=== PATIENT | male | born 1985 | race African-American/Black ===

== ENCOUNTER 2016-05-19 02:42 | Emergency (ER) | payer SELFPAY ==
[~2016-05-19] VITALS: Ht 152.4 cm; Wt 58.0 kg
[~2016-05-19 02:42] MED LIST: ALBU1AER INH; BECL0.07 INH; PRED20 PO; VENTAER INH
[2016-05-19 02:45] VITALS: BP 130/78; PULSE 86; RESP 14; TEMP 97; O2SAT 99
[2016-05-19] MEDS ORDERED: LIDOCAINE 1%/EPINEPHrine 1:100,000 SOLN 20 ML VIAL INFIL ONE (03:30)
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
[2016-05-19] MEDS ORDERED: IBUPROFEN 600 MG TAB PO ONE (03:45)
== END 2016-05-19 04:29 | disposition home or self-care (01) ==
LOC: NEPB 02:42
DX: S01.311A Laceration without foreign body of right ear, initial encounter (principal); W22.8XXA Striking against or struck by other objects, initial encounter; J45.909 Unspecified asthma, uncomplicated
CPT/HCPCS: 12011

== ENCOUNTER 2016-06-02 15:34 | Emergency (ER) | payer SELFPAY ==
[~2016-06-02] VITALS: Ht 152.4 cm; Wt 60.0 kg
[2016-06-02 15:36] VITALS: BP 121/77; PULSE 82; RESP 16; TEMP 98; O2SAT 98
[2016-06-02] MEDS ORDERED: ALBU.5I NEB (15:49)
[2016-06-02] MEDS ORDERED: ADVA250A INH (15:49)
--- NOTE | 2016-06-02 15:51 | PD ---
HPI Chief Complaint: Wound/Suture/Staple Re-Check Time Seen by Provider: 15:50 Travel History International Travel<30 days: No Contact w/Intl Traveler<30days: No Traveled to known affect area: No History of Present Illness HPI 31-year-old male reports to emergency department requesting suture removal to his right ear. They have been in place since May 19. He denies erythema, edema, drainage from the laceration site. Denies fever, chills, nausea, vomiting. History of asthma. No known allergies. No other modifying factors or associated signs and symptoms. PFSH Past Medical History Asthma: Yes Diminished Hearing: No Respiratory: Yes (ASTHMA) Immunizations Current: Yes Past Surgical History Oral Surgery: Yes (GUMS AND TEETH) Social History Alcohol Use: Yes (OCC) Tobacco Use: Yes (QUIT 2 MONTHS AGO ) Substance Use: Yes (DENIES ) Allergies-Medications (Allergen,Severity, Reaction): Coded Allergies: No Known Allergies (Unverified , 06/02/16) Reported Meds & Prescriptions Reported Meds & Active Scripts Active Reported Advair Diskus Inh (Fluticasone-Salmeterol Inh) 250-50 Mcg/Blist Aer 1 Puff INH BID Rinse mouth after use. Albuterol Neb (Albuterol Sulfate) 2.5 Mg/0.5 Ml Neb 2.5 Mg NEB Q4HR NEB PRN Note: The Albuterol Sulfate Inhalation Solution is concentrated and must be diluted. Read complete instructions carefully before using. Review of Systems Except as stated in HPI: all other systems reviewed are Neg Physical Exam Narrative GENERAL: Well-nourished, well-developed male patient, in no acute distress SKIN: Warm and dry. Right ear laceration is well approximated and with sutures intact; without erythema, edema, drainage; no signs of infection. HEAD: Atraumatic. Normocephalic. EYES: Pupils equal and round. No scleral icterus. No injection or drainage. ENT: Mucosa pink and moist. Airway patent. NECK: Trachea midline. CARDIOVASCULAR: Regular rate. RESPIRATORY: No accessory muscle use. GASTROINTESTINAL: Flat. MUSCULOSKELETAL: No obvious deformities. No clubbing. No cyanosis. No edema. NEUROLOGICAL: Awake and alert. Oriented 3. No obvious cranial nerve deficits. Motor grossly within normal limits. Normal speech. PSYCHIATRIC: Appropriate mood and affect; insight and judgment normal. Data Data Last Documented VS Vital Signs Date Time Temp Pulse Resp B/P Pulse Ox O2 Delivery O2 Flow Rate FiO2 06/02/16 15:36 98.0 82 16 121/77 98 Room Air MDM Medical Decision Making Medical Screen Exam Complete: Yes Emergency Medical Condition: Yes Medical Record Reviewed: Yes Differential Diagnosis Suture removal, wound recheck, medical clearance Narrative Course 31-year-old male presents for suture removal to his right ear. They replaced on May 19. The laceration is well approximated and without signs of infection. Sutures removed. Patient tolerated well. Patient is medically cleared and stable for discharge. Discussed reasons to return to the emergency department. Instructed patient to follow up with primary care provider. Patient agrees with treatment plan. The patients vital signs are stable and the patient is stable for outpatient follow-up and treatment. Patient discharged home, stable and in no acute distress. Diagnosis Primary Impression: Encounter for removal of sutures Referrals: Primary Care Physician Patient Instructions: General Instructions, Stitches Removal (ED) Departure Forms: Tests/Procedures, Work Release Enter return to work date: Jun 03, 2016 Additional Instructions: Ibuprofen or Tylenol as directed and as needed for pain Follow up with primary care provider Return to the emergency department immediately with worsening of symptoms Med/Other Pt SpecificInfo: No Meds Exist/No RX given Disposition: 01 DISCHARGE HOME Condition: Stable Estephania Truong Jun 02, 2016 15:51
== END 2016-06-02 16:09 | disposition home or self-care (01) ==
LOC: NEPB 15:34
DX: S01.311D Laceration without foreign body of right ear, subsequent encounter (principal); X58.XXXD Exposure to other specified factors, subsequent encounter; Z48.02 Encounter for removal of sutures
CPT/HCPCS: 99281

== ENCOUNTER 2016-07-23 12:09 | Emergency (ER) | payer OTHER ==
[~2016-07-23] VITALS: Ht 152.4 cm; Wt 57.0 kg
[~2016-07-23 12:09] MED LIST changes: +ADVA250A INH; +ALBU.5I NEB; -ALBU1AER INH; -BECL0.07 INH; -PRED20 PO; -VENTAER INH
[2016-07-23 12:10] VITALS: BP 135/70; PULSE 78; RESP 20; TEMP 98.8; O2SAT 99
[2016-07-23 13:10] VITALS: RESP 40; O2SAT 95
[2016-07-23] MEDS ORDERED: methylPREDNISolone SOD SUCC 125 MG/2 ML VIAL IVP ONE (13:15)
[2016-07-23] MEDS ORDERED: SODIUM CHLORIDE 0.9% FLUSH 5 ML FLUSH IVF PRN (13:15)
[2016-07-23] MEDS: RESP: ALBUTEROL 2.5 MG/3 ML NEB (SCH) INH ×3 (13:32→14:05)
[2016-07-23 13:33] VITALS: O2SAT 98
--- NOTE | 2016-07-23 13:56 | PD ---
HPI Chief Complaint: Respiratory Distress Time Seen by Provider: 13:52 Travel History International Travel<30 days: No Contact w/Intl Traveler<30days: No Traveled to known affect area: No History of Present Illness HPI 4-year-old male that presents to the ED for evaluation of asthma exacerbation. Per patient his been out of his inhaler for a couple of months. Per patient for the past 3 days his been having worsening shortness of breath and today got worse. Per patient today is been so severe that he cannot even catch his breath. He is barely able to speak secondary to shortness of breath. Per patient he is never had to be admitted to the hospital but he has been here before for shortness of breath episode secondary to him not having his albuterol inhaler. He denies any fevers chills or sweats. He states having some cough and runny nose recently but nothing too severe. Per patient essentially comes with his asthma exacerbation. He has no allergies to medication. Denies any abdominal pain. No nausea or vomiting. States that his triggers are usually changes in the climate as well as environmental. He is not specifically sure of which environmental causes other than the change in temperature. He has no allergies to medication. Denies any recent travel. PFSH Past Medical History Asthma: Yes Diminished Hearing: No Neurologic: Yes (TBI) Respiratory: Yes Immunizations Current: Yes Influenza Vaccination: Yes Past Surgical History Oral Surgery: Yes (GUMS AND TEETH) Social History Alcohol Use: Yes (OCC) Tobacco Use: Yes Substance Use: No Allergies-Medications (Allergen,Severity, Reaction): Coded Allergies: No Known Allergies (Unverified , 07/23/16) Reported Meds & Prescriptions Reported Meds & Active Scripts Active Prednisone 20 Mg Tab 20 Mg PO BID Proair Hfa 8.5 GM Inh (Albuterol Sulfate) 90 Mcg/Act Aer 2 Puff INH Q4-6H PRN 108 mcg/actuation Azithromycin 250 Mg Tab 250 Mg PO DIRECTED Take 2 tabs (500 mg) on day 1 then 1 tab daily x 4 days. Review of Systems General / Constitutional: No: Fever, Chills, Weight Gain, Weight Loss, Other Eyes: No: Diploplia, Blurred Vision, Photophobia, Drainage, Redness, Foreign Body Sensation, Pain, Tearing, Blind Spots, Visual changes, Blindness, Other HENT: No: Headaches, Vertigo, Lightheadedness, Sore Throat, Rhinitis, Rhinorrhea, Congestion, Nosebleed, Neck Stiffness, Neck Pain, Masses, Gingival Bleeding, Dental Difficulties, Ear Discharge, Earache, Other Cardiovascular: No: Chest Pain or Discomfort, Palpitations, Irregular Rhythm, Tachycardia, Diaphoresis, Syncope, Dyspnea on exertion, Varicosities, Edema, Cyanosis, Varicosities, Phlebitis, Claudication, Other Respiratory: Positive: Cough, Shortness of Breath, Wheezing, No: Sneezing, Orthopnea, Hemoptysis, Stridor, Night Sweats, Pleuritic Pain, Other Gastrointestinal: No: Nausea, Vomiting, Diarrhea, Abdominal Pain, Hematemesis, Hematochezia, Constipation, Changes in Bowel Habits, Indigestion, Dysphagia, Loss of Appetite, Other Genitourinary: No: Urgency, Frequency, Dysuria, Nocturia, Hematuria, Decreased Urinary Output, Oliguria, Hesitancy, Dribbling, Incontinence, Pelvic Pain, Flank Pain, Dyspareunia, Discharge, Dysmenorrhea, Menorrhagia, Metorrhagia, Vaginal Bleeding, Other Musculoskeletal: No: Myalgias, Arthralgias, Limited ROM, Weakness, Cramping, Edema, Pain, Atrophy, Other Skin: No Rash, No Itching, No Dryness, No Lumps, No Hives, No Change in Pigmentation, No Change in nails, No Alopecia, No Lesions, No Breast Lumps, No Breast Tenderness, No Breast Swelling, No Other Neurologic: No: Weakness, Dizziness, Syncope, Focal Abnormalities, Coordination Problem, Tremor, Ataxia, Headache, Change in Mentation, Slurred Speech, Paresthesia, Incontinence, Seizures, Sensory Disturbance, Other Psychiatric: No: Anxiety, Depression, Suicidal Ideations, Disorder of Thought, Mood Disorder, Substance Abuse, Homicidal Ideation, Other Endocrine: No: Heat Intolerance, Cold Intolerance, Polyuria, Polydipsia, Other Hematologic/Lymphatic: No: Easy Bruising, Lymph Node Enlargement, Other Physical Exam Narrative GENERAL: Well-nourished, well-developed patient in no apparent distress. SKIN: Warm and dry. HEAD: Atraumatic. Normocephalic. EYES: Pupils equal and round reactive to light and accommodation. No scleral icterus. No injection or drainage. ENT: No nasal bleeding or discharge. Mucous membranes pink and moist. TMs are clear with no sign of infection or perforation. No mastoid tenderness. Ear canals are intact bilaterally. No lymphadenopathy. Nostril mucosa is red and moist with clear mucus noted. No sinus tenderness to palpation noted. Tonsils are not enlarged or swollen. No ulvua Deviation. Tongue is midline. NECK: Trachea midline. No JVD. No meningeal signs noted CARDIOVASCULAR: Regular rate and rhythm. RESPIRATORY: No accessory muscle use. Wheezing her in all lung mahan. Breath sounds equal bilaterally. GASTROINTESTINAL: Abdomen soft, non-tender, nondistended. Hepatic and splenic margins not palpable. MUSCULOSKELETAL: Extremities without clubbing, cyanosis, or edema. No obvious deformities. NEUROLOGICAL: Awake and alert. No obvious cranial nerve deficits. Motor grossly within normal limits. Five out of 5 muscle strength in the arms and legs. Normal speech. PSYCHIATRIC: Appropriate mood and affect; insight and judgment normal. Data Data Last Documented VS Vital Signs Date Time Temp Pulse Resp B/P Pulse Ox O2 Delivery O2 Flow Rate FiO2 07/23/16 14:00 89 32 120/75 98 Nasal Cannula 2 07/23/16 12:10 98.8 Orders Ecg Monitoring (07/23/16 13:10) Iv Access Insert/Monitor (07/23/16 13:10) Oximetry (07/23/16 13:10) Oxygen Administration (07/23/16 13:10) Methylprednisolone So Succ Inj (Solumedr (07/23/16 13:15) Albuterol Neb (Albuterol Neb) (07/23/16 13:15) Sodium Chloride 0.9% Flush (Ns Flush) (07/23/16 13:15) Chest, Single Ap (07/23/16 ) Albuterol Neb (Albuterol Neb) (07/23/16 14:15) [facility] Medical Decision Making Medical Screen Exam Complete: Yes Emergency Medical Condition: Yes Medical Record Reviewed: Yes Interpretation(s) CXR negative Differential Diagnosis Asthma exacerbation versus asthma versus shortness of breath versus pneumonia Narrative Course 31-year-old male that presents to the ED for evaluation of shortness of breath. Patient was properly examined and was found to have signs and symptoms very consistent with appears to be an acute asthma exacerbation. Patient was given 3 DuoNeb treatments as well as Solu-Medrol IV. Chest x-ray was done and round pneumonia. Chest x-ray was negative for acute disease. Patient was reassessed and does feel improved. Patient will be sent home with prescriptions for albuterol inhaler, azithromycin, prednisone. Told to follow with PCP. See ED worsening symptoms. Diagnosis Primary Impression: Asthma exacerbation Referrals: [facility] Patient Instructions: General Instructions Additional Instructions: Motrin and Tylenol for pain and fever. You can use [id number] antihistamine as well as well as Mucinex as needed for runny nose and congestion. Drink plenty of fluids. Follow-up with PCP. See ED for worsening symptoms. Med/Other Pt SpecificInfo: Prescription(s) given Scripts Prednisone 20 Mg Tab20 Mg PO BID #10 TAB Prov:Leanna Joseph MD 07/23/16 Albuterol 8.5 GM Inh (Proair Hfa 8.5 GM Inh)90 Mcg/Act Aer2 Puff INH Q4-6H PRN ( SHORTNESS OF BREATH) #1 INHALER 108 mcg/actuation Prov:Leanna Joseph MD 07/23/16 Azithromycin 250 Mg [id number] Mg PO DIRECTED #6 TAB Take 2 tabs (500 mg) on day 1 then 1 tab daily x 4 days. Prov:Leanna Joseph MD 07/23/16 Disposition: 01 DISCHARGE HOME Condition: Stable Landen Maddox Jul 23, 2016 13:56
[2016-07-23 14:00] VITALS: BP 120/75; PULSE 89; RESP 32; O2SAT 98
[2016-07-23] MEDS ORDERED: RESP: ALBUTEROL 2.5 MG/3 ML NEB (SCH) INH ONE (14:15)
[2016-07-23] MEDS ORDERED: AZIT250T3 PO (14:50)
[2016-07-23] MEDS ORDERED: PRED20 PO (14:50)
[2016-07-23] MEDS ORDERED: ALBUAER3 INH (14:50)
--- NOTE | 2016-07-23 15:09 | RADRPT ---
EXAM DATE/TIME: 07/23/2016 13:36 [facility] COMPARISON: CHEST SINGLE AP, July 25, 2015, 23:29. INDICATIONS : Shortness of breath. MEDICAL HISTORY : Asthma. SURGICAL HISTORY : None. ENCOUNTER: Initial ACUITY: 3 days PAIN SCORE: 0/10 LOCATION: Bilateral chest FINDINGS: A single view of the chest demonstrates the lungs to be symmetrically aerated without evidence of mas s, infiltrate or effusion. The cardiomediastinal contours are unremarkable. Osseous structures are intact. CONCLUSION: No acute cardiopulmonary process. Gregor Lynn MD on July 23, 2016 at 15:07 Board Certified Radiologist. This report was verified electronically.
== END 2016-07-23 15:26 | disposition home or self-care (01) ==
LOC: NEPE 12:09
DX: J45.901 Unspecified asthma with (acute) exacerbation (principal); Z72.0 Tobacco use
CPT/HCPCS: 71010; 94640; 94664; 96374; 99283; J2930; J7613

== ENCOUNTER 2017-07-08 07:14 | Emergency (ER) | payer OTHER ==
[~2017-07-08] VITALS: Ht 152.4 cm; Wt 53.0 kg
[~2017-07-08 07:14] MED LIST changes: -ADVA250A INH; -ALBU.5I NEB; +ALBUAER3 INH; +AZIT250T3 PO; +PRED20 PO
[2017-07-08 07:23] VITALS: BP 127/79; PULSE 76; RESP 16; TEMP 98.6; O2SAT 100
[2017-07-08] MEDS ORDERED: TRAM50TA PO (07:54)
[2017-07-08] MEDS ORDERED: CLIN150C14 PO (07:54)
[2017-07-08] MEDS ORDERED: IBUP1TAB7 PO (07:54)
[2017-07-08] MEDS ORDERED: PRED-503 PO (07:54)
[2017-07-08] MEDS ORDERED: PERI0.126 SWISH-SPIT (07:54)
--- NOTE | 2017-07-08 07:54 | PD ---
HPI Chief Complaint: Oral / Dental Pain or Problem Time Seen by Provider: 07:36 Travel History International Travel<30 days: No Contact w/Intl Traveler<30days: No Traveled to known affect area: No History of Present Illness HPI 32-year-old male presents to the emergency department with complaint of right tooth pain that started 2 days ago and right-sided facial swelling that started yesterday. Reports subjective fever. Denies vomiting. Denies sore throat, unusual drooling, difficulty swallowing. Has been taking Tylenol for symptom management. Rates pain 10/10. Describes it as throbbing and pressure. No known aggravating factors. Allergies to cats. No primary care provider. History of asthma. Has no other medical complaints. No other modifying factors or associated signs and symptoms. PFSH Past Medical History Asthma: Yes Diminished Hearing: No Neurologic: Yes (TBI) Respiratory: Yes Immunizations Current: Yes Past Surgical History Oral Surgery: Yes (GUMS AND TEETH) Social History Alcohol Use: Yes (OCC) Tobacco Use: Yes Substance Use: No Allergies-Medications (Allergen,Severity, Reaction): Coded Allergies: No Known Allergies (Unverified Adverse Reaction, Unknown, 07/08/17) Reported Meds & Prescriptions Reported Meds & Active Scripts Active Clindamycin (Clindamycin HCl) 150 Mg Cap 450 Mg PO Q6H 10 Days Peridex Liq (Chlorhexidine Gluconate (Mouth) Liq) 0.12% Soln 15 Ml SWISH-SPIT BID 10 Days Tramadol (Tramadol HCl) 50 Mg Tab 50 Mg PO Q4H PRN Ibuprofen 800 Mg Tab 800 Mg PO Q6HR PRN Deltasone (Prednisone) 20 Mg Tab 40 Mg PO DAILY 5 Days START 07/09/2017 Prednisone 20 Mg Tab 20 Mg PO BID Proair Hfa 8.5 GM Inh (Albuterol Sulfate) 90 Mcg/Act Aer 2 Puff INH Q4-6H PRN 108 mcg/actuation Azithromycin 250 Mg Tab 250 Mg PO DIRECTED Take 2 tabs (500 mg) on day 1 then 1 tab daily x 4 days. Review of Systems Except as stated in HPI: all other systems reviewed are Neg Physical Exam Narrative GENERAL: Well-nourished, well-developed black male patient, in no acute distress ; afebrile, nontoxic-appearing SKIN: Warm and dry. HEAD: Atraumatic. Normocephalic. Right-sided facial edema; without erythema; with tenderness on palpation. No lymphadenopathy. EYES: Pupils equal and round. No scleral icterus. No injection or drainage. ENT: Mucosa pink and moist. No erythema or exudates. No uvular edema. No uvular , palatal, or tonsillar deviation. Airway patent. EARS: Bilateral pinnae and external canals appear within normal limits. Bilateral tympanic membranes without erythema, dullness or perforation. MOUTH: Mucous membranes moist, no lesions, tongue and gums appear normal. Poor dentition throughout. Multiple cavities noted. Tooth #6 with tenderness on palpation. Surrounding gingiva is without erythema, edema, drainage; no fluctuance to surrounding gingiva. No obvious abscess noted. NECK: Trachea midline. No lymphadenopathy. CARDIOVASCULAR: Regular rate. RESPIRATORY: No accessory muscle use. GASTROINTESTINAL: Flat. MUSCULOSKELETAL: No obvious deformities. No clubbing. No cyanosis. No edema. NEUROLOGICAL: Awake and alert. Oriented 3. No obvious cranial nerve deficits. Motor grossly within normal limits. Normal speech. PSYCHIATRIC: Appropriate mood and affect; insight and judgment normal. Data Data Last Documented VS Vital Signs Date Time Temp Pulse Resp B/P (MAP) Pulse Ox O2 Delivery O2 Flow Rate FiO2 07/08/17 07:23 98.6 76 16 127/79 (95) 100 Orders Orders Iv Access Insert/Monitor (07/08/17 07:46) Clindamycin Inj (Cleocin Inj) (07/08/17 08:00) Ketorolac Inj (Toradol Inj) (07/08/17 08:00) Dexamethasone Inj (Decadron Inj) (07/08/17 08:00) Ed Discharge Order (07/08/17 07:54) [facility] Medical Decision Making Medical Screen Exam Complete: Yes Emergency Medical Condition: Yes Medical Record Reviewed: Yes Differential Diagnosis Dental abscess, dentalgia, facial swelling, less likely peritonsillar abscess Narrative Course 32-year-old male with tooth pain to #6 and right-sided facial edema. There is no obvious abscess noted and no fluctuance to the surrounding gingiva. Patient is afebrile and nontoxic-appearing. Reports subjective fevers. Denies vomiting. IV, clindamycin 600 mg IV, Toradol, Decadron ordered. Patient provided emergency dental information sheet for follow-up. Instructed patient to follow-up with dentist. Clindamycin, Deltasone, ibuprofen, tramadol, Peridex mouth rinse prescribed for home. Instructed patient to follow up with primary care provider. Patient verbalizes understanding and agreement with treatment plan. Patient is medically cleared and stable for discharge. Discussed reasons to return to the emergency department. Patient agrees with treatment plan. The patients vital signs are stable and the patient is stable for outpatient follow-up and treatment. Patient discharged home, stable and in no acute distress. Diagnosis Primary Impression: Tooth pain Additional Impression: Swelling of right side of face Referrals: [facility] Dentist Primary Care Physician Patient Instructions: Dental Abscess (ED), Dental Caries (ED), General Instructions, Toothache (ED) Additional Instructions: Complete full course of antibiotics Ibuprofen or Tylenol as directed and as needed to reduce pain and inflammation Use Peridex as directed for oral hygiene Warm or cool compresses to the affected area Follow-up with dentist Follow-up with primary care provider Return to emergency department immediately with worsening of symptoms Med/Other Pt SpecificInfo: Prescription(s) given Scripts Clindamycin (Clindamycin) 150 Mg Cap 450 MG PO Q6H for Infection for 10 Days, #120 CAP 0 Refills Prov: Estephania Truong 07/08/17 Chlorhexidine Gluconate (Mouth) Liq (Peridex Liq) 0.12% Soln 15 ML SWISH-SPIT BID for 10 Days, #300 ML 0 Refills Prov: Estephania TruongP 07/08/17 Tramadol (Tramadol) 50 Mg Tab 50 MG PO Q4H Y for PAIN, #8 TAB 0 Refills Prov: Estephania TruongP 07/08/17 Ibuprofen (Ibuprofen) 800 Mg Tab 800 MG PO Q6HR Y for PAIN, #30 TAB 0 Refills Prov: Estephania Truong 07/08/17 Prednisone (Deltasone) 20 Mg Tab 40 MG PO DAILY for 5 Days, #10 TAB 0 Refills START 07/09/2017 Prov: Estephania Truong 07/08/17 Disposition: 01 DISCHARGE HOME Condition: Stable Estephania Truong Jul 08, 2017 07:54
[2017-07-08] MEDS ORDERED: CLINDAMYCIN INJ 600 MG in SODIUM CHLORIDE 0.9% INJ 100 ML IV ONE (08:00)
[2017-07-08] MEDS ORDERED: KETOROLAC TROMETHAMINE 30 MG/ML (IVP) VIAL IV PUSH ONE (08:00)
[2017-07-08] MEDS ORDERED: DEXAMETHASONE SOD PHOS 4 MG/ML VIAL IVP ONE (08:00)
== END 2017-07-08 09:09 | disposition home or self-care (01) ==
LOC: NEPD 07:14
DX: K08.89 Other specified disorders of teeth and supporting structures (principal); R22.0 Localized swelling, mass and lump, head; J45.909 Unspecified asthma, uncomplicated; Z72.0 Tobacco use
CPT/HCPCS: 96374; 96375; 99284; J1100; J1885